=== PATIENT | male | born 1995 | race Caucasian/White ===

== ENCOUNTER 2017-03-10 02:26 | Emergency (ER) | payer SELFPAY ==
[~2017-03-10] VITALS: Ht 12.8 cm; Wt 86.4 kg
[2017-03-10 02:38] VITALS: BP 140/81; TEMP 99
[2017-03-10] MEDS ORDERED: FLOXIN OTIC DROP5 ML OT (03:14)
[2017-03-10 03:51] VITALS: PULSE 96
== END 2017-03-10 03:51 | disposition home or self-care (01) ==
LOC: COL.ER 02:26
DX: T70.0XXA Otitic barotrauma, initial encounter (principal); S00.81XA Abrasion of other part of head, initial encounter; Y04.0XXA Assault by unarmed brawl or fight, initial encounter